=== PATIENT | female | born 1995 | race Caucasian/White ===

== ENCOUNTER 2016-06-08 19:53 | Emergency (ER) | payer BC, OTHER ==
--- NOTE | 2016-06-08 20:03 | PDOC ---
History of Present Illness - General History Source: Patient Exam Limitations: No Limitations - History of Present Illness Initial Comments: 06/08/16 20:11 The patient is a 20 year old female, with no significant past medical history, who presents today complaining of left ankle pain. The patient states that she was at a trampoline park yesterday when accidentally jumped onto the metal surface in between the trampolines. She inverted her ankle and heard a snap. The patient is ambulatory, but is limping. Denies head trauma or any other trauma. Denies fever, chills. Allergies: none reported ROS General: No fevers or chills, no weakness, no weight loss HEENT: No change in vision. No sore throat,. No ear pain CardioVascular: No chest pain or shortness of breath Respiratory:No cough, or wheezing. Gastrointestinal: no nausea, vomiting, diarrhea or constipation, No rectal bleeding Genitourinary: No dysuria, hematuria, or frequency Musculoskeletal: +left ankle injury and pain. No joint or muscle pain or swelling Neurologic: No headache, vertigo, dizziness or loss of consciousness Psychiatric: nor depression Skin: No rashes or easy bruising Endocrine: no increased thirst or abnormal weight change Allergic: no skin or latex allergy All other systems reviewed and normal Basic PE GENERAL: The patient is awake, alert, and fully oriented, in no acute distress. HEAD: Normal with no signs of trauma. EYES: Pupils equal, round and reactive to light, extraocular movements intact, sclera anicteric, conjunctiva clear. LEFT ANKLE: Moderate ecchymosis and swelling of the lateral malleolus with some tenderness. No tenderness of the foot or base of the 5th metatarsal. No tenderness of the leg or knee. Neurovascular intact. NEUROLOGICAL: Normal speech, normal gait. PSYCH: Normal mood, normal affect. SKIN: Warm, Dry, normal turgor, no rashes or lesions noted. <Alfreda Alejo - Last Filed: 06/08/16 20:08> - General History Source: Patient Exam Limitations: No Limitations - History of Present Illness Initial Comments: 06/08/16 20:47 A portion of this note was documented by scribe services under my direction. I have reviewed the details of the note, within reason, and agree with the documentation. The case summary and management plan written by me. Procedure note: OCL Sugar tong splint applied to left ankle by Andre Neurovascular exam post application of splint intact X-ray minimally displaced fracture of the lateral malleolus mortise is intact Assessment and plan: This is a 20-year-old female who injured her left ankle well jumping on a trampoline at a trampoline Park. Patient injured her ankle yesterday and has been walking on it with difficulty. X-ray revealed a minimally displaced action of the lateral malleolus. Patient was put in an OCL splint sugar tong type Patient given crutches will follow-up with orthopedist <Alexander Singleton I - Last Filed: 06/08/16 20:50> - General Chief Complaint: Injury Stated Complaint: INJURY TO LEFT ANKLE Time Seen by Provider: 06/08/16 20:03 Past History <Alfreda Alejo - Last Filed: 06/08/16 20:08> - Past Medical History Other medical history: DENIES - Immunization History Td Vaccination: Yes Immunization Up to Date: (UNSURE) - Psycho/Social/Smoking Cessation Hx Anxiety: No Suicidal Ideation: No Smoking Status: Yes Smoking History: Former smoker Have you smoked in the past 12 months: No Number of Cigarettes Smoked Daily: 5 Information on smoking cessation initiated: No Hx Alcohol Use: No Drug/Substance Use Hx: No Substance Use Type: None <Alexander Singleton I - Last Filed: 06/08/16 20:50> - Past Medical History Allergies/Adverse Reactions: Allergies Allergy/AdvReac Type Severity Reaction Status Date / Time No Known Allergies Allergy Verified 06/08/16 19:55 Home Medications: Ambulatory Orders No Home Medications 0 dose .ROUTE UTDICT 12/20/11 *Physical Exam - Vital Signs Last Vital Signs Temp Pulse Resp BP Pulse Ox 98 F 84 16 116/73 98 06/08/16 19:56 06/08/16 19:56 06/08/16 19:56 06/08/16 19:56 06/08/16 19:56 <Alfreda Alejo - Last Filed: 06/08/16 20:08> - Vital Signs Last Vital Signs Temp Pulse Resp BP Pulse Ox 98 F 84 16 116/73 98 06/08/16 19:56 06/08/16 19:56 06/08/16 19:56 06/08/16 19:56 06/08/16 19:56 <Alexander Singleton I - Last Filed: 06/08/16 20:50> *DC/Admit/Observation/Transfer - Attestations Scribe Attestion: 06/08/16 20:12 Documentation prepared by MANJINDER Spangler, acting as medical microbiologist for Alexander Singleton MD. <Alfreda Alejo - Last Filed: 06/08/16 20:08> - Discharge Dispostion Admit: No <Alexander Singleton I - Last Filed: 06/08/16 20:50> Diagnosis at time of Disposition: Closed fracture of left ankle Qualifiers: Encounter type: initial encounter Qualified Code(s): S82.892A - Other fracture of left lower leg, initial encounter for closed fracture - Discharge Dispostion Disposition: HOME Condition at time of disposition: Stable - Patient Instructions Printed Discharge Instructions: Ankle Fracture Additional Instructions: Tylenol or Motrin as needed for pain. No weightbearing using crutches for walking. Follow-up with an orthopedist call Dr. Livingston at [phone] in the morning for an appointment. Return to the emergency department immediately with ANY new, persistent or worsening symptoms. Continue any medications as previously prescribed by your physician. You should follow up with your primary doctor as soon as possible regarding today's emergency department visit. . Please make sure your doctor reviews the results of your emergency evaluation. Thank you for coming to the Emergency Department today for your care. It was a pleasure to see you today. Please note that your evaluation is INCOMPLETE until you follow-up with your doctor.
[2016-06-08 20:16] VITALS: BP 116/73; PULSE 84; TEMP 98; BMI 22.5
== END 2016-06-08 20:56 | disposition home or self-care (01) ==
LOC: FER 19:53
PROC: 2W3RX1Z Immobilization of Left Lower Leg using Splint (ICD-10-PCS; principal; 2016-06-08)
DX: S82.892A Other fracture of left lower leg, initial encounter for closed fracture (principal); X58.XXXA Exposure to other specified factors, initial encounter; Y93.59 Activity, other involving other sports and athletics played individually; Y92.9 Unspecified place or not applicable
CPT/HCPCS: 73610-TC-LT; 73630-TC-LT; 84703; 99281-25

== ENCOUNTER 2017-07-26 05:30 | Inpatient (IN) | payer BC ==
[2017-07-26 06:11] VITALS: BMI 29.6
[2017-07-26] MEDS ORDERED: ELECTROLYTE-148 SOLN 1,000 ML IV ONE (06:12)
[2017-07-26 06:19] LABS: BASO % 0.3 % (0-2.0); EOS % 0.4 % (0-4.5); HEMATOCRIT 31.1 % (32.4-45.2); HEMOGLOBIN 10.4 GM/dL (10.7-15.3); LYMPH % 25.6 % (8-40); MCH 27.3 pg (25.7-33.7); MCHC 33.5 g/dl (32.0-36.0); MEAN CELL VOLUME 81.5 fl (80-96); MEAN PLT VOLUME 8.5 fl (7.5-11.1); MONO % 8.4 % (3.8-10.2); NEUT % 65.3 % (42.8-82.8); PLATELET COUNT 292 K/MM3 (134-434); RBC 3.81 M/mm3 (3.60-5.2); RDW 14.3 % (11.6-15.6); WHITE BLOOD COUNT 15.6 K/mm3 (4.0-10.0)
[2017-07-26] MEDS ORDERED: TUBERCULIN PPD 5 TU/0.1ML SYRINGE (IN PATIENT USE ONLY) ID ONE (06:30)
[2017-07-26 06:37] LABS: INR 0.88 (0.82-1.09)
[2017-07-26 06:40] LABS: ACTIVATED PTT 22.4 SECONDS (26.9-34.4)
--- NOTE | 2017-07-26 06:41 | HP ---
Past Medical History - Admission History of Present Illness: 21 yo @ 39 0//7 wks by first trimester ultrasound, EDC 08/02/2017 complicated by: ASCUS pap, + HPV - s/p normal colposcopy; plan for repeat pap smear . Patient reports contractions began at 0300 and leakage of fluid at 0330. She was found to be 7 cm on presentation. She endorses movement, denies vaginal bleeding. Limitations to Obtaining History: No Limitations - Past Medical History Cardiovascular: No: HTN Pulmonary: No: Asthma Gastrointestinal: No: GERD ...: 2 ...Para: 0 ...Induced : 1 ...LMP: 10/26/16 ... Weeks Gestation by Dates: 39.0 ...EDC by Dates: 08/02/17 Heme/Onc: No: Anemia - Past Surgical History Hx Myomectomy: No Hx Transabdominal Cerclage: No Additional Surgical History: eTOP s/p D&C - Smoking History Smoking history: Never smoked Have you smoked in the past 12 months: No Aproximately how many cigarettes per day: 5 - Alcohol/Substance Use Hx Alcohol Use: No - Social History History of Recent Travel: No Home Medications - Allergies Allergies/Adverse Reactions: Allergies Allergy/AdvReac Type Severity Reaction Status Date / Time No Known Allergies Allergy Verified 07/26/17 05:46 - Home Medications Home Medications: Ambulatory Orders Vit Calc,Iron,Folic [ Vitamins] 1 tab PO DAILY 07/26/17 Family Disease History - Family Disease History Family History: Denies Review of Systems - Review of Systems Constitutional: reports: No Symptoms Neck: reports: No Symptoms Cardiovascular: reports: No Symptoms Respiratory: reports: No Symptoms Gastrointestinal: reports: No Symptoms Genitourinary: reports: No Symptoms Musculoskeletal: reports: No Symptoms Integumentary: reports: No Symptoms Hematology/Lymphatic: reports: No Symptoms Psychiatric: reports: No Symptoms Physical Exam - Maternity Vital Signs: Vital Signs Temperature 97.7 F 07/26/17 05:30 Pulse Rate 98 07/26/17 05:30 Respiratory Rate 16 07/26/17 05:30 Blood Pressure 126/81 07/26/17 05:30 O2 Sat by Pulse Oximetry (%) Constitutional: Yes: Well Nourished, No Distress, Calm Cardiovascular: Yes: Regular Rate and Rhythm Lungs: Clear to auscultation - Abdominal Exam/OB Fundal Height: 40 Number of Fetuses: Single Presentation: Vertex Contractions: Yes Regularity: Regular Intensity: Mod/Strong Category: I Accelerations: Non-Uniform Decelerations: None - Vaginal Exam/OB Vaginal Bleediing: No - Physical Exam Psychiatric: Yes: Alert, Oriented - Labs Lab Results: CBC, BMP 07/26/17 06:05 PNL: A positive, antibody negative, RPR NR; HBS Ag negative; HCV negative; Rubella immune; Varicella immune; Parvovirus immune; GBS negative; Hg Dana AA; GCT WNL Hemorrhage Risk Assessment - Risk Factors Medium Risk Factors: Yes: None High Risk Factors: Yes: None Risk Score: 1 Risk Level: Medium Risk Assessment/Plan 21 yo @ 39 0/7 wks, active labor 1. Admit to L&D 2. Consents reviewed and signed 3. GBS negative 4. Category I FHT 5. Patient desires epidural for pain control 6. Will proceed with expectant management
[2017-07-26] MEDS ORDERED: BUPIVACAINE HCL/PF 0.25% (2.5MG/ML) 10 ML VIAL ONE (06:58)
[2017-07-26] MEDS ORDERED: FENTANYL/BUPIVACAINE/NS/PF - PCEA - 50 ML DISP.SYRIN EP ONE (07:07)
[2017-07-26 07:25] LABS: ANION GAP 11 (8-16); BLOOD UREA NITROGEN 9 mg/dL (7-18); CALCIUM 8.8 mg/dL (8.5-10.1); CHLORIDE 107 mmol/L (98-107); CO2 21 mmol/L (21-32); CREATININE 0.7 mg/dL (0.55-1.02); GLUCOSE,RANDOM 96 mg/dL (74-106); POTASSIUM 3.7 mmol/L (3.5-5.1); SODIUM 139 mmol/L (136-145)
[2017-07-26] MEDS ORDERED: FENTANYL/BUPIVACAINE/NS/PF - PCEA - 50 ML DISP.SYRIN EP SCH (07:30)
[2017-07-26] MEDS ORDERED: NALOXONE HCL 0.4 MG/ML VIAL IVPUSH PRN (07:30)
[2017-07-26] MEDS ORDERED: LIDOCAINE HCL 1% PRESERVATIVE FREE - 30ML VIAL ONE (08:33)
[2017-07-26] MEDS ORDERED: OXYTOCIN 20 UNITS in 0.9% NS 20 UNIT/1,000 ML INFUS.BAG IV ONE (08:33)
--- NOTE | 2017-07-26 08:46 | PN ---
Ante-Partal Exam - Subjective Subjective: Patient comfortable s/p epidural Vital Signs: Vital Signs Temperature 97.8 F 07/26/17 07:00 Pulse Rate 96 H 07/26/17 08:00 Respiratory Rate 18 07/26/17 08:00 Blood Pressure 113/62 07/26/17 08:00 O2 Sat by Pulse Oximetry (%) 97 07/26/17 08:00 Bleeding: No Headache: No Visual changes: No Right upper quadrant pain: No - Contractions Contractions: Yes Intensity: Unaware - Exam during Labor Heart Rate: 130 Variability: Moderate Category: I Monitor Accelerations: Present Monitor Decelerations: None Exam: Vaginal Dilatation (cm): 9 Effacement (%): 100 Amniotic Membrane Status: Ruptured (0840) Amniotic Fluid: Clear Presentation: Vertex Station: 0 - Intrapartum Hemorrhage Risk Medium Risk Factors: None High Risk Factors: None Risk Score: 0 Risk Level: Low Risk - Assessment/Plan Assessment/Plan: 21 yo @ 39 wks active labor 1. Good cervical change, AROM performed (not likely SROM as previously thought) 2. GBS neg 3. Pain well controlled with epidural 4. Category I FHT 5. Will proceed with expectant management
[2017-07-26] MEDS ORDERED: OXYTOCIN 30 UNITS in 0.9% NS 30 UNIT/500 ML INFUS.BAG IVPB SCH (11:00)
--- NOTE | 2017-07-26 11:09 | PN ---
Ante-Partal Exam - Subjective Subjective: Patient reports moderate relief s/p epidural No complaints Vital Signs: Vital Signs Temperature 97.9 F 07/26/17 09:59 Pulse Rate 120 H 07/26/17 10:00 Respiratory Rate 18 07/26/17 10:00 Blood Pressure 124/78 07/26/17 10:00 O2 Sat by Pulse Oximetry (%) 100 07/26/17 10:00 Bleeding: No Headache: No Visual changes: No Right upper quadrant pain: No - Contractions Contractions: Yes Regularity: Regular Intensity: Unaware Monitor Mode: External - Exam during Labor Heart Rate: 110 Variability: Moderate Category: I Monitor Accelerations: Present Monitor Decelerations: None Exam: Vaginal Dilatation (cm): 10 Effacement (%): 100 Amniotic Membrane Status: Ruptured Amniotic Fluid: Clear Presentation: Vertex Station: +1 - Intrapartum Hemorrhage Risk Medium Risk Factors: None High Risk Factors: None Risk Score: 0 Risk Level: Low Risk - Assessment/Plan Assessment/Plan: 21 yo active labor 1. Good cervical change, will await descent of head 2. Category I FHT 3. Pain well controlled with epidural 4. GBS neg 5. Will proceed with expectant management
[2017-07-26] MEDS ORDERED: oxyCODONE HCL 5 MG TABLET PO PRN (14:20)
[2017-07-26] MEDS ORDERED: BENZOCAINE 20% 57 GM BOTTLE TP PRN (14:20)
[2017-07-26] MEDS ORDERED: ACETAMINOPHEN 325 MG TABLET (FP) ONE (14:20)
[2017-07-26] MEDS ORDERED: METHYLERGONOVINE MALEATE 0.2 MG/1 ML AMP IM PRN (14:20)
[2017-07-26] MEDS ORDERED: BENZOCAINE 28 GM HEMORRHOIDAL OINTMENT TP PRN (14:20)
[2017-07-26] MEDS ORDERED: BISACODYL 10 MG SUPP.RECT RC PRN (14:20)
[2017-07-26] MEDS ORDERED: WITCH HAZEL 50% (TUCKS) 40 PAD/JAR PAD TP PRN (14:20)
[2017-07-26] MEDS ORDERED: oxyCODONE HCL 5 MG TABLET ONE (14:21)
[2017-07-26 14:26] LABS: ARTERIAL BLOOD GAS PCO2 54.8 mmHg (35-45); ARTERIAL BLOOD GAS pH 7.17 (7.35-7.45)
[2017-07-26] MEDS ORDERED: OXYTOCIN 20 UNITS in 0.9% NS 20 UNIT/1,000 ML INFUS.BAG IV SCH (14:30)
--- NOTE | 2017-07-26 14:31 | PN ---
Delivery - Delivery Vaginal Delivery: No Problems Episiotomy/Laceration: Midline, 1st degree EBL (cc): 300 Delivery, Single - Stages of Labor Date 1st Stage Initiatied: 07/26/17 Time 1st Stage Initiated: 03:00 Date 2nd Stage Initiated: 07/26/17 Time 2nd Stage Initiated: 12:40 Date of Delivery: 07/26/17 Time of Delivery: 13:59 Date Placenta Delivered: 07/26/17 Time Placenta Delivered: 14:07 Placenta: Yes: Spontaneous - Condition of Gender: Male Weight: 7 lb 6 oz Position: OP - 1 Minute Total Score: 6 5 Minutes Total Score: 8 - [place] Feeding Plan Initial Plan: Exclusive throughout hospitalization Remarks - Remarks Remarks: Patient progressed to fully dilated and at 1359 via delivered a viable male infant in direct OP position, APGARs 6, 8, weighing 7lb 6oz; 20.5 inches. Head delivered spontaneously, two nuchal cords noted and reduced, followed by shoulders and body without difficulty. handed to waiting NICU staff Cord was clamped and cut, cord blood and gases were collected and sent Perineum and vagina examined, a first degree vaginal laceration was noted and repaired in the usual fashion. Placenta was delivered spontaneously and intact. 20 units of pitocin in 1 L IVF was given. All counts correct x 2. Mother and infant stable in LDR. EBL 300cc.
[2017-07-26 14:32] LABS: ARTERIAL BLOOD GAS PO2 24.8 mmHg (80-100)
[2017-07-26 14:33] LABS: ARTERIAL BLD GAS O2 SATURATION 35.2 % (90-98.9); ARTERIAL BLOOD GAS BASE EXCESS -10.9 meq/l (-2-2)
[2017-07-26 14:37] LABS: VENOUS PC02 84.7 mmHg (38-52); VENOUS PH 7.02 (7.32-7.42); VENOUS PO2 9.8 mmHg (28-48)
[2017-07-26] MEDS: ACETAMINOPHEN 325 MG TABLET (FP) PO PRN ×2 (15:00→22:59)
[2017-07-26] MEDS: FERROUS SO4 325 MG TABLET (FP) PO SCH (17:23)
[2017-07-26] MEDS: IBUPROFEN 600 MG TABLET (FP) PO PRN (22:59)
[2017-07-27 07:28] LABS: BASO % 0.3 % (0-2.0); EOS % 0.2 % (0-4.5); HEMATOCRIT 26.6 % (32.4-45.2); HEMOGLOBIN 8.6 GM/dL (10.7-15.3); MCH 26.6 pg (25.7-33.7); MCHC 32.5 g/dl (32.0-36.0); MEAN PLT VOLUME 8.2 fl (7.5-11.1); MONO % 8.3 % (3.8-10.2); NEUT % 73.2 % (42.8-82.8); PLATELET COUNT 234 K/MM3 (134-434); RBC 3.25 M/mm3 (3.60-5.2); RDW 14.7 % (11.6-15.6); WHITE BLOOD COUNT 20.6 K/mm3 (4.0-10.0)
[2017-07-27] MEDS: IBUPROFEN 600 MG TABLET (FP) PO PRN ×3 (07:37→16:34)
[2017-07-27] MEDS: FERROUS SO4 325 MG TABLET (FP) PO SCH ×3 (07:37→17:15)
[2017-07-27] MEDS: ACETAMINOPHEN 325 MG TABLET (FP) PO PRN ×3 (07:38→16:33)
[2017-07-27] MEDS: PRENATAL VITAMINS W/ FOLIC ACID TABLET (FP) PO SCH (09:22)
--- NOTE | 2017-07-27 09:47 | PN ---
Post Progress Note - Subjective Subjective: No complaints Post Day: 1 Type of Delivery: Vital Signs: Vital Signs Temperature 97.5 F L 07/27/17 08:30 Pulse Rate 89 07/27/17 08:30 Respiratory Rate 20 07/27/17 08:30 Blood Pressure 101/60 07/27/17 08:30 O2 Sat by Pulse Oximetry (%) 99 07/26/17 16:15 Breast Exam: Yes: Soft Uterus: Yes: Fundus Firm, Fundus below umbilicus, Non-tender Abdomen/GI: Yes: Abdomen soft, Passing flatus, Tolerating PO Lochia: Yes: Rubra Lochia, amount: Small Extremities: Yes: Calves non-tender, Edema (trace) Perineum: Yes: Intact Activity: Ambulating - Labs Labs: CBC WBC 20.6 K/mm3 (4.0-10.0) H D 07/27/17 07:10 RBC 3.25 M/mm3 (3.60-5.2) L 07/27/17 07:10 Hgb 8.6 GM/dL (10.7-15.3) L D 07/27/17 07:10 Hct 26.6 % (32.4-45.2) L 07/27/17 07:10 MCV 82.0 fl (80-96) 07/27/17 07:10 MCH 26.6 pg (25.7-33.7) 07/27/17 07:10 MCHC 32.5 g/dl (32.0-36.0) 07/27/17 07:10 RDW 14.7 % (11.6-15.6) 07/27/17 07:10 Plt Count 234 K/MM3 (134-434) 07/27/17 07:10 MPV 8.2 fl (7.5-11.1) 07/27/17 07:10 Neutrophils % 73.2 % (42.8-82.8) 07/27/17 07:10 Lymphocytes % 18.0 % (8-40) D 07/27/17 07:10 Monocytes % 8.3 % (3.8-10.2) 07/27/17 07:10 Eosinophils % 0.2 % (0-4.5) 07/27/17 07:10 Basophils % 0.3 % (0-2.0) 07/27/17 07:10 Assessment/Plan 21 yo P1 s/p , doing well stable, afebrile. Asymptomatic for anemia. care instructions reviewed. Continue routine care. Ambulation encouraged Discharge instruction reviewed.
[2017-07-27] MEDS ORDERED: SENNOSIDES/DOCUSATE COMBO (SENNA PLUS) TABLET (UD) PO PRN (22:00)
[2017-07-28] MEDS: IBUPROFEN 600 MG TABLET (FP) PO PRN (08:40)
[2017-07-28] MEDS: FERROUS SO4 325 MG TABLET (FP) PO SCH ×2 (08:40→11:10)
[2017-07-28] MEDS: ACETAMINOPHEN 325 MG TABLET (FP) PO PRN (08:41)
[2017-07-28] MEDS: PRENATAL VITAMINS W/ FOLIC ACID TABLET (FP) PO SCH (10:00)
[2017-07-28 12:12] VITALS: BP 131/74; PULSE 82; TEMP 98.4
== END 2017-07-28 11:45 | disposition home or self-care (01) | DRG 775 ==
LOC: EDBD 05:30 → JLDR 05:30 → J3W 16:49
PROVIDERS: ADMIT Obstetrics & Gynecology; ATTEND Obstetrics & Gynecology
PROC: 10E0XZZ Delivery of Products of Conception, External Approach (ICD-10-PCS; principal; 2017-07-26)
PROC: 0W8NXZZ Division of Female Perineum, External Approach (ICD-10-PCS; 2017-07-26)
PROC: 0HQ9XZZ Repair Perineum Skin, External Approach (ICD-10-PCS; 2017-07-26)
DX: O69.81X0 Labor and delivery complicated by cord around neck, without compression, not applicable or unspecified (principal); O99.02 Anemia complicating childbirth; O70.0 First degree perineal laceration during delivery; D64.9 Anemia, unspecified; Z3A.39 39 weeks gestation of pregnancy; Z37.0 Single live birth
CPT/HCPCS: 36415; 36600; 59409; 80048; 82803; 85025; 85610; 85730; 86593; 86850; 86870; 86900; 86901; 86902; 87389